=== PATIENT | female | born 1980 | race Caucasian/White ===

== ENCOUNTER 2020-10-22 11:15 | Outpatient (REF) | payer OTHER, SELFPAY ==
[2020-10-23 11:39] LABS: COVID-19 RT-PCR UVMMC Result Negative (Negative)
== END 2020-10-22 11:16 | disposition home or self-care (01) ==
LOC: LBN 11:15
PROVIDERS: Visit Provider Physician Assistant Medical
DX: J02.9 Acute pharyngitis, unspecified (principal); Z20.822 Contact with and (suspected) exposure to COVID-19
CPT/HCPCS: U0003; 87070